=== PATIENT | female | born 1960 | race Caucasian/White ===

== ENCOUNTER 2024-08-19 16:10 | Emergency (ER) | payer OTHER, SELFPAY ==
[2024-08-19 16:41] LABS: % Basophils 0.9 % (0-2); % Eosinophils 1.1 % (0-6); % Immature Granulocytes 0.5 % (0-0.5); % Lymphocytes 15.3 % (20.5-51.1); % Monocytes 9.7 % (1.7-9.3); % Neutrophils 72.5 % (42.2-75.2); Absolute Basophils 0.1 10^3/uL (0-0.2); Absolute Eosinophils 0.1 10^3/uL (0-0.7); Absolute Immature Granulocytes 0.1 10^3/uL (0-0.05); Absolute Lymphocytes 1.6 10^3/uL (1.2-3.4); Absolute Neutrophils 7.7 10^3/uL (1.4-6.5); Hematocrit 40.1 % (37.0-47.0); Hemoglobin 13.2 g/dL (12.0-16.0); Mean Corp Hgb Conc. 32.9 g/dL (33.0-37.0); Mean Corpuscular Hgb 30.8 pg (27.0-31.0); Mean Corpuscular Volume 93.5 fL (81.0-99.0); Mean Platelet Volume 10.4 fL (7.4-10.4); Nucleated Red Blood Cells % 0 %; Platelet Count 276 10^3/uL (130-400); Red Blood Cell Count 4.29 10^6/uL (4.20-5.40); Red Cell Dist. Width 14.7 % (11.5-14.5); White Blood Cell Count 10.6 10^3/uL (4.8-10.8)
[2024-08-19 16:47] LABS: ALT (SGPT) 23 U/L (0-35); AST (SGOT) 21 U/L (14-36); Albumin 4.3 g/dl (3.5-5.0); Alkaline Phosphatase 101 U/L (38-126); Blood Urea Nitrogen 27 mg/dl (7-17); Carbon Dioxide 25 mmol/L (22-30); Chloride 102 mmol/L (98-107); Glucose 98 mg/dl (70-99); Lipase 95 U/L (23-300); Potassium 4.9 mmol/L (3.5-5.1); Sodium 138 mmol/L (135-145); Total Bilirubin 0.5 mg/dl (0.2-1.3); Total Protein 6.9 g/dl (6.3-8.2); eGFR 45.63
[2024-08-19 18:13] VITALS: BP 132/53
--- NOTE | 2024-08-19 18:33 | ED.GENMED ---
History of Present Illness
General
Chief Complaint: Abdominal Pain
Source: patient
Exam Limitations: none
Time Seen by Provider: 08/19/24 18:08
History of Present Illness
History of Present Illness:
This is a 63 year old female that comes in with c/o right lower abd pain. States that she started yesterday with pain. Then last night through the night it got worse and she was unable to sleep. States that she could hardly move in bed to get up or
turn. State that she was also no Ozempic. States that her insurance would not cover this so she found someone that did compound medication. States that she was on this for about 6 weeks and she started with diarrhea 2-3 days after starting. State
that she would also have bright red blood in her stool occasionally. States that she stopped this compound medication 2 weeks ago but over the past week she is till having bright red blood in her stool. States that she is occasionally SOB with her
asthma. Denies any fever, chills, chest pain, nausea, vomiting, diarrhea, headache, dizziness, urinary burning.
Past History
Past History
ED Past Medical History: Asthma, HTN, Hypercholesterolemia, Psychiatric (Anxiety, Depression) and Other (Concussion, Renal calculus, )
ED Past Surgical History: Cholecystectomy, Gynecological (Total abd hyster with mass removed from abd. ), Orthopedic (Bilateral knee replacements X 2), Tonsilectomy and Other (Bariatric [id number]-CTI-NAQA procedure)
Social History
Tobacco: Former smoker
Alcohol: Occasional
Personal: Single
Living: alone
Review of Systems
Review of Systems
All Other Systems: ROS reviewed and negative except as documented in HPI and ROS
Constitutional: Reports no symptoms; Denies fever or chills
EENT: Reports no symptoms
Respiratory: Reports trouble breathing; Denies cough
Cardiac: Reports no symptoms; Denies chest pain
ABD/GI: Reports abdominal pain and bloody stools (Occasional); Denies nausea, vomiting or diarrhea
: Reports no symptoms; Denies dysuria, frequency or urgency
Musculoskeletal: Reports no symptoms
Skin: Reports no symptoms
Neurological: Reports no symptoms; Denies dizzy or headache
Psychiatric: Reports no symptoms
Phy Exam
General Physical Exam
General Presentation: mild distress (Patient refused pain medication at this time)
General age: appears stated age
General Skin: warm and dry
General Habitus: normal
General Mental: alert
General Hydration: dry mucous membranes
ENT Exam
ENT Exam: TM's normal, pharynx normal and neck supple
Eye Exam
Eye Exam: EOMI
Cardiovascular Exam
Cardiovascular Exam: regular rate/rhythm, no edema and normal peripheral pulses
Pulmonary Exam
Pulmonary Exam: lungs clear, no respiratory distress, no rales, chest non tender, no crackles, no rhonchi, no wheezing and no cough
Gastrointestinal Exam
Gastrointestinal Exam: normal bowel sounds, soft, no organomegaly, no pulsatile mass, non distended, tender (RLQ tenderness with palpation) and other (Obese, No stool in the rectal vault at this time. Hem negative. )
Musculoskeletal Exam
Musculoskeletal Exam: full ROM and no edema
Skin Exam
Skin Exam: normal color, warm/dry, no rash and no petechia
Psychiatric Exam
Psychiatric Exam: normal mood/affect
Course
Orders/Labs/Results
Orders:
Orders
08/19/24 16:28
Complete Blood Count/With Diff Urgent
Comprehensive Metabolic Panel Urgent
Lipase Urgent
08/19/24 18:32
CT Abd/pelvis W Iv Cont Urgent
Comment:
Reason For Exam: right sided abd pain
0.9% Sodium Chloride 1000 ml [Nss] 1,000 ml IV BOLUS
08/19/24 18:33
Add On- LAB Urgent
Tests Added?: HCG
08/19/24 20:01
Urinalysis Reflex To Culture Urgent
Date Specimen was Collected: 08/19/24
Time Specimen was Collected: 19:56
Urine Microscopic Reflex Cult Urgent
Abnormal Lab Results
08/19/24 08/19/24
16:28 20:01
MCHC 32.9 L g/dL
(33.0-37.0)
RDW 14.7 H %
(11.5-14.5)
Abs Immat Gran (auto) 0.1 H 10^3/uL
(0-0.05)
Absolute Neuts (auto) 7.7 H 10^3/uL
(1.4-6.5)
Absolute Monos (auto) 1.0 H 10^3/uL
(0.1-0.6)
Lymphocytes % 15.3 L %
(20.5-51.1)
Monocytes % 9.7 H %
(1.7-9.3)
BUN 27 H mg/dl
(7-17)
Creatinine 1.3 H mg/dL
(0.6-1.0)
Leukocyte Esterase Rfl Trace A
(Negative)
08/19/24 16:28
08/19/24 16:28
Dehydration. Lipase normal at 95, Urine negative for infection
Vital Signs
Initial and Last Documented VS:
Initial Vital Signs
Temp Pulse Resp Pulse Ox
98.7 F 102 20 97
08/19/24 16:12 08/19/24 16:12 08/19/24 16:12 08/19/24 16:12
Last Documented Vital Signs
Temp Pulse Resp BP Pulse Ox
98.7 F 90 19 165/76 98
08/19/24 16:12 08/19/24 20:00 08/19/24 20:00 08/19/24 20:00 08/19/24 20:00
MDM/Problems Addressed
Differential Diagnosis Includes:
appendicitis, Abd adhesions
MDM/Problems Addressed:
This is a 63 year old female that comes in with c/o right lower abd pain and some rectal bleeding.
Will check labs and get CT scan.
Back into see patient. Reviewed CT scan. Explained that she has a fatty liver and fat filled hernia but her appendix is normal and there is no bowel obstruction. Explained that she may have pulled a muscle. If her pain continued you will need to
see the family doctor. Patient may also had adhesions. Will discharge home.
Chronic conditions affecting care:
Obese
Acute Exacerbation and/or Progression of Chronic Illness:
NA
*Radiology
Radiology exam reviewed: radiology read reviewed (CT-The appendix appears normal. NO evidence for bowel obstruction. NO vidence of free intraperitoneal air. Hepatomegaly with diffuse fatty infiltration of the liver. Status post cholecystectomy with
no evidence for biliary ductal dilation. Laparoscopic gastric band is present and appears unchanged. ), all reviewed NAD by ED Provider (CT cont- Status post total abdominal hysterectomy with removal of pelvis mass since examination in 2020. NO
eivdence fo abnormal pelvic mass or ascites on today's exam. Fat containing hernia in the right paramedian abdomen. No CT findings to suggest strangulation or inflammation of the hernia sac. ) and other (CT cont- slightly enlarged lymph nodes within
the pelvis, mainly adjacent to the common femoral vessels, stable from examination of Nov 22, 2020. Stability is reassuring that these are benign lymph nodes. )
*Pulse Oximetry
Patient hypoxic: no
*EKG
Interpreted by ED Provider?: NA
Rate: EKG- N/A
*Warp Clamper Interpretation
Rate: normal
Heart Rate: 88
Rhythm: sinus
*Critical Care Note
Total Time (30-74mins, 75-104mins- exclusive of procedures): Not Applicable
ED Attending Note
-
Portions of this chart may have been created with voice recognition software.� Occasional wrong word or��sound alike� substitutions may have occurred due to the inherent limitations of voice recognition software.
Discharge Plan
Departure
Patient Disposition: Home (Routine Discharge)
Date of Disposition: 08/19/24
Time of Disposition: 20:58
Patient with high blood pressure during this ER visit?: Yes
Condition: Good
Covid-19: Not Applicable
Discharge Problem:
Abdominal pain
Instructions: Abdominal Pain, BLOOD PRESSURE
Prescriptions:
No Action
alprazolam 0.5 MG tablet
0.5 mg PO BIDPRN PRN (Reason: anxiety)
bupropion HCl 300 MG tablet extended release 24 hr
300 mg PO DAILY
fluticasone propion-salmeterol 250-50 mcg/dose Blister With Device
1 inh INHALATION R BID
pravastatin 40 mg Tablet
40 mg PO DAILY
Theragen Tablet
1 tab PO DAILY
metoprolol succinate 25 mg Tablet Extended Release 24 Hr
25 mg PO DAILY
irbesartan 150 mg Tablet
150 mg PO DAILY
albuterol sulfate 90 mcg/actuation Hfa Aerosol Inhaler
2 puff INHALATION R Q4HPRN PRN (Reason: sob)
cholecalciferol (vitamin D3) [Vitamin D3] 10 mcg (400 unit) Tablet
10 mcg PO DAILY
desvenlafaxine 100 mg Tablet Extended Release 24 Hr
100 mg PO DAILY
Activity Restrictions/Additional Instructions:
As discussed, your blood work show dehydration. Please increase your water intake to 8-8oz glasses daily. Your CT is negative for any acute process and your urine is negative for infection. You have a fatty liver and fat filled hernia. Please follow
up with the family doctor. You may use Tylenol or Ibuprofen for pain. IF YOU HAVE ANY OTHER CONCERNS PLEASE RETURN TO THE EMERGENCY ROOM.
Interventions
Interventions:
*Risk Screen - Suicide Last Done: 08/19/24 16:15
*General Assessment Last Done: 08/19/24 16:15
*Neglect/Abuse Screening Last Done: 08/19/24 16:15
ED- Fall Risk Assessment Last Done: 08/19/24 19:05
*ED COVID-19 Vaccine History Last Done: 08/19/24 16:16
DY-Satxbb-Knyivtgyro Assessment Last Done: 08/19/24 19:05
Discharge Date and Time
Print Language: WELSH
[2024-08-19 19:04] VITALS: BMI 51.4
[2024-08-19] MEDS: NSS 1000 IV (19:04)
[2024-08-19 20:00] VITALS: BP 165/76
[2024-08-19 20:13] LABS: Urine Albumin Trace (Neg - Trace); Urine Bilirubin Negative (Negative); Urine Character Clear (Clear); Urine Color Yellow; Urine Glucose Negative (Negative); Urine Ketone Negative (Negative); Urine Leukocyte Trace (Negative); Urine Nitrite Negative (Negative); Urine Occult Blood Negative (Negative); Urine Specific Gravity 1.015 (<1.030); Urine Urobilinogen Negative (Neg - 1+)
[2024-08-19 20:32] LABS: Urine Hyaline Cast >15 /LPF (0-2); Urine Squamous Cell >30 /LPF (Few)
[2024-08-19 20:33] LABS: Urine Bacteria Moderate (Negative); Urine Red Blood Cell 0-2 /HPF (0-2)
== END 2024-08-19 21:30 | disposition home or self-care (01) ==
LOC: EMR 16:10
PROVIDERS: Clinical Nurse Specialist Family Health; Emergency Medicine; EMERGENCY PHYSICIAN Emergency Medicine; FAMILY PHYSICIAN Internal Medicine
DX: R10.31 Right lower quadrant pain (principal); K92.1 Melena; R59.9 Enlarged lymph nodes, unspecified; R16.0 Hepatomegaly, not elsewhere classified; K76.0 Fatty (change of) liver, not elsewhere classified; E66.9 Obesity, unspecified; J45.909 Unspecified asthma, uncomplicated; I10 Essential (primary) hypertension; E78.00 Pure hypercholesterolemia, unspecified; F32.A Depression, unspecified; F41.9 Anxiety disorder, unspecified; Z96.653 Presence of artificial knee joint, bilateral; Z87.891 Personal history of nicotine dependence; Z87.442 Personal history of urinary calculi; Z87.820 Personal history of traumatic brain injury; Z90.49 Acquired absence of other specified parts of digestive tract; Z90.710 Acquired absence of both cervix and uterus; Z88.2 Allergy status to sulfonamides
CPT/HCPCS: 99284; 96360; 74177; 80053; 81003; 81015; 83690; 85025; 87086; Q9967

== ENCOUNTER 2024-09-02 20:07 | Inpatient (IN) | payer OTHER, SELFPAY ==
[2024-09-02 16:52] VITALS: BP 135/91
[2024-09-02 17:54] VITALS: BMI 49.8
--- NOTE | 2024-09-02 18:21 | ED.GENMED ---
History of Present Illness
General
Chief Complaint: Weakness
Time Seen by Provider: 09/02/24 17:58
History of Present Illness
History of Present Illness:
63-year-old female presents to the emergency department for evaluation of persistent diarrhea ongoing for the past month. She went to her primary care physician today where she was noted to be dizzy and weak and had an episode of hypotension
prompting ED evaluation. Blood pressure was reportedly 70 systolic in the primary care office today. She was seen in the emergency department 2 weeks ago for similar symptoms at which time a CT scan did not reveal any acute pathology. She was
noted to have a newly diagnosed right abdominal hernia however this was not felt to be contributory to her symptoms. Has had continued diarrhea on a daily basis, generally nonbloody. Denies any recent antibiotics in the past 3 months. No
associated fevers or night sweats.
Past History
Past History
ED Past Medical History: Asthma, HTN, Hypercholesterolemia, Psychiatric (Anxiety, Depression) and Other (Concussion, Renal calculus, )
ED Past Surgical History: Cholecystectomy, Gynecological (Total abd hyster with mass removed from abd. ), Orthopedic (Bilateral knee replacements X 2), Tonsilectomy and Other (Bariatric yziyrax-XSP-BDLH procedure)
Social History
Tobacco: Former smoker
Alcohol: Occasional
Personal: Single
Living: alone
Review of Systems
Review of Systems
Allergies reviewed?: Yes
All Other Systems: ROS reviewed and negative except as documented in HPI and ROS
Phy Exam
Physical Exam
Physical Exam:
GEN: Well appearing, NAD, WDWN
HEENT: Oral mucosa moist, no scleral icterus
Cardiac: Regular rate and rhythm, no murmurs
Lung: No respiratory distress, no tachypnea, lungs clear to auscultation bilaterally
Abdomen: Obesity limits exam, soft, tender to the right abdomen, right upper quadrant and right mid abdomen, no rigidity or peritoneal signs
MSK: No gross deformity or injuries
Skin: Good color, no pallor or jaundice, no rashes
Neuro: AO x3, moves all extremities freely
Psych: Calm, cooperative
Course
Orders/Labs/Results
Orders:
Orders
09/02/24 Dinner
Low Fat
At Your Request: Full Participation
09/02/24 18:04
TSH Reflex To Free T4 Routine
09/02/24 18:05
Complete Blood Count/With Diff Urgent
Comprehensive Metabolic Panel Urgent
Lipase Urgent
09/02/24 18:54
0.9% Sodium Chloride 1000 ml [Nss] 1,000 ml IV BOLUS
09/02/24 19:41
STOOL [C difficile Antigen & Toxins] Urgent
MARGIE Source: Feces/Stool
Specimen Description:
Stool Culture Urgent
MARGIE Source: Feces/Stool
Specimen Description:
Stool For WBC Urgent
MARGIE Source: Feces/Stool
Specimen Description:
09/02/24 19:42
Admit/Transfer Patient As Directed
Co-Sign Provider:
Level of Care: Inpatient admission
Assign to:: Medical/Surgical
Physician / Group: Silvino
Diagnosis: BHARATH, Diarrhea
Reason for Hospitalization: BHARATH, Diarrhea
Expected length of stay greater than two midnights?: Yes
ELOS- Estimated Length of Stay in days: 2
I certify the patient meets the requirements for IP care: Yes
PRN Pain Medication Management As Directed
May give lesser potent ordered pain med per pt: Yes
preference::
Protocol:: Medication orders for pain may be administered in a
manner that supports deferring to patient preference
when the pt is:
- Requesting an ordered lesser potent pain medication.
Least to most potent pain medications are defined
as: acetaminophen < NSAID < tramadol < opioids
(morphine, oxycodone, hydromorphone).
- Requesting a lesser dose of the same medication IF
ORDERED.
- Requesting a less intrusive route of administration
if both routes are prescribed by the provider (PO <
IV).
09/02/24 19:43
Code Status As Directed
Resuscitation Status: Full Code
09/02/24 21:04
0.9% Sodium Chloride 1000 ml [Nss] 1,000 ml IV 125 mls/hr
Acetaminophen [Tylenol] 650 mg PO Q4HPRN PRN
Albuterol Nebs [Ventolin Nebules] 2.5 mg INH R Q4HPRN PRN
Alprazolam [Xanax] 0.5 mg PO BIDPRN PRN
Ondansetron Injectable [Zofran] 4 mg IV Q6HPRN PRN
09/02/24 21:04
Activity As Directed
Activity Level: Ambulate
I/O [Intake/ Output] As Directed
Frequency: Per unit guidelines
Orthostatic Vital Signs As Directed
Orthostatic VS Frequency: BID
Pneumatic Compression Sleeves As Directed
Type: Knee high
Vital Signs As Directed
Frequency: Per unit guidelines
Oxygen Therapy [O2 Therapy] [RESP] Routine
Titrate/Wean O2 to maintain O2 sat greater than (%): 94
DX Deep Vein Thrombosis Video Routine
09/02/24 21:15
Fluticasone/Salmeterol 115/21 [Advair Hfa 115/21 Mcg Inhaler] 2 puff INH R BID
09/02/24 23:30
Urinalysis Reflex To Culture Urgent
Date Specimen was Collected: 09/02/24
Time Specimen was Collected: 18:19
09/03/24 00:00
Heparin 5,000 units SC Q8
09/03/24 06:00
Basic Metabolic Panel IN AM
Complete Blood Count/No Diff IN AM
09/03/24 08:00
Bupropion(24Hr)Extended Releas [WELLBUTRIN XL (24 hour extended release)] 300 mg PO DAILY
Desvenlafaxine Succinate [Pristiq] 200 mg PO DAILY
Metoprolol Xl [Toprol Xl] 25 mg PO DAILY
Pravastatin Sodium [Pravachol] 40 mg PO DAILY
Abnormal Lab Results
09/02/24
18:05
WBC 11.5 H 10^3/uL
(4.8-10.8)
RDW 14.6 H %
(11.5-14.5)
Abs Immat Gran (auto) 0.1 H 10^3/uL
(0-0.05)
Absolute Neuts (auto) 7.7 H 10^3/uL
(1.4-6.5)
Absolute Monos (auto) 1.7 H 10^3/uL
(0.1-0.6)
Immature Gran % 1.0 H %
(0-0.5)
Lymphocytes % 16.7 L %
(20.5-51.1)
Monocytes % 14.7 H %
(1.7-9.3)
Carbon Dioxide 20 L mmol/L
(22-30)
BUN 34 H mg/dl
(7-17)
Creatinine 2.4 H mg/dL
(0.6-1.0)
Glucose 107 H mg/dl
(70-99)
09/02/24 18:05
09/02/24 18:05
Vital Signs
Initial and Last Documented VS:
Initial Vital Signs
Temp Pulse Resp BP Pulse Ox
98.8 F 91 18 135/91 98
09/02/24 16:52 09/02/24 16:52 09/02/24 16:52 09/02/24 16:52 09/02/24 16:52
Last Documented Vital Signs
Temp Pulse Resp BP Pulse Ox
97.7 F 69 18 130/80 94
09/02/24 22:54 09/02/24 22:54 09/02/24 22:54 09/02/24 22:54 09/02/24 22:54
MDM/Problems Addressed
MDM/Problems Addressed:
Unclear source of the patient's diarrhea, not high risk for C. difficile but certainly could benefit from stool culture testing. She has a significant BHARATH which is causing her intermittent hypotension and weakness thus we will admit for IV fluids
and further management
*Critical Care Note
Total Time (30-74mins, 75-104mins- exclusive of procedures): Not Applicable
ED Attending Note
-
Portions of this chart may have been created with voice recognition software.� Occasional wrong word or��sound alike� substitutions may have occurred due to the inherent limitations of voice recognition software.
Discharge Plan
Departure
Patient Disposition: Admit
Date of Disposition: 09/02/24
Time of Disposition: 19:02
Presentation/result/management discussed w/ accepting MD/DO: Hospitalist
Discharge Problem:
Diarrhea, Weakness, Acute kidney injury
Interventions
Interventions:
*Risk Screen - Suicide Last Done: 09/02/24 16:52
*General Assessment Last Done: 09/02/24 16:52
*Neglect/Abuse Screening Last Done: 09/02/24 16:52
*ED COVID-19 Vaccine History Last Done: 09/02/24 16:52
*Nursing Disposition Last Done: 09/02/24 21:04
ED- Cardiac Assessment Last Done: 09/02/24 17:54
ED- Neurological Assessment Last Done: 09/02/24 17:54
ED- Pulmonary Assessment Last Done: 09/02/24 17:54
Discharge Date and Time
Discharge Date/Time: 09/02/24 21:06
[2024-09-02 18:24] LABS: % Basophils 0.7 % (0-2); % Eosinophils 0.3 % (0-6); % Lymphocytes 16.7 % (20.5-51.1); % Monocytes 14.7 % (1.7-9.3); % Neutrophils 66.6 % (42.2-75.2); Absolute Basophils 0.1 10^3/uL (0-0.2); Absolute Immature Granulocytes 0.1 10^3/uL (0-0.05); Absolute Lymphocytes 1.9 10^3/uL (1.2-3.4); Absolute Monocytes 1.7 10^3/uL (0.1-0.6); Absolute Neutrophils 7.7 10^3/uL (1.4-6.5); Hematocrit 41.1 % (37.0-47.0); Hemoglobin 13.9 g/dL (12.0-16.0); Mean Corp Hgb Conc. 33.8 g/dL (33.0-37.0); Mean Corpuscular Hgb 30.3 pg (27.0-31.0); Mean Corpuscular Volume 89.7 fL (81.0-99.0); Mean Platelet Volume 9.5 fL (7.4-10.4); Nucleated Red Blood Cells % 0 %; Platelet Count 264 10^3/uL (130-400); Red Blood Cell Count 4.58 10^6/uL (4.20-5.40); Red Cell Dist. Width 14.6 % (11.5-14.5); White Blood Cell Count 11.5 10^3/uL (4.8-10.8)
[2024-09-02 18:29] LABS: ALT (SGPT) 27 U/L (0-35); AST (SGOT) 25 U/L (14-36); Albumin 4.4 g/dl (3.5-5.0); Alkaline Phosphatase 98 U/L (38-126); Blood Urea Nitrogen 34 mg/dl (7-17); Calcium 10.1 mg/dl (8.4-10.2); Carbon Dioxide 20 mmol/L (22-30); Estimated Creatinine Clearance 32 ml/min; Glucose 107 mg/dl (70-99); Lipase 78 U/L (23-300); Total Bilirubin 0.3 mg/dl (0.2-1.3); Total Protein 7.3 g/dl (6.3-8.2); eGFR 21.87
[2024-09-02 18:38] VITALS: BP 134/64
[2024-09-02 18:52] LABS: Chloride 98 mmol/L (98-107); Potassium 4.7 mmol/L (3.5-5.1); Sodium 136 mmol/L (135-145)
[2024-09-02 19:00] VITALS: BP 132/71
--- NOTE | 2024-09-02 19:45 | HPS.HSE ---
Family Physician
-
Family Physician: Karis Craft MD
Chief Complaint
-
Diarrhea, Weakness
History of Present Illness
Patient is a 63y F with PMH significant for anxiety / depression, hypertension and morbid obesity who presents to ED complaining of weakness and diarrhea. Patient states that she developed loose stools about 2 months ago after beginning a new,
compounded form of semaglutide for weight loss. She stopped this medication about 4 weeks ago; however, her symptoms have only progressed since that time. Patient states that she has been having loose and occasionally watery stools for the past
3-4 weeks. These occur between 3 - 7 times per day. She has limited her dairy / fatty food intake with no appreciable change in her symptoms.
She was seen here in the ED on 08/19 for complaints of abdominal discomfort and loose stools. Evaluation at that time was largely unremarkable.
Today, patient had an episode of incontinence of watery stool while in the shower.
She was seen by her PCP today and her BP was reportedly very low (70-80 systolic at that office). Patient was advised to present to the ED for further evaluation.
Patient states that she feels very weak and 'shaky'. She also admits to development of urinary urgency and dysuria - only over the past few days.
She also states that she has noted some streaks of blood on the toilet paper after BM. No grossly bloody stools.
She has not been on any recent abx. She denies any recent travel or known sick contacts. No recent med changes other than previously mentioned semaglutide.
Patient took a single dose of Imodium today around 1 PM.
She has passed no stool or urine since her arrival here in the ED.
Medical History
Past Medical History
Past Medical History: Reports Other
Additional Past Medical History:
Hypertension
Anxiety / Depression
Morbid Obesity
Asthma
CKD - ? Stage
Ovarian Cancer
Past Surgical History: Reports Other
Additional Past Surgical History:
Bilateral TKA (x 2 each)
Lap Band
Cholecystectomy
PAUL / BSO / Pelvic Mass Resection
Social History
Tobacco: Former Smoker
Alcohol: Occasional
Drug: None
Living: With Family
Family History
Family History: Not pertinent
Allergies / Home Medications
Allergies reflects when Allergies were last updated in [facility].
Home Medications with original date entered in [facility]
Allergy/Medication List:
Allergies
Allergy/AdvReac Type Severity Reaction Status Date / Time
Sulfa (Sulfonamide Allergy total body Verified 08/19/24 16:15
Antibiotics) rash,
disorientated
Home Medications
alprazolam 0.5 mg tablet 0.5 mg PO BIDPRN PRN anxiety 12/25/18
bupropion HCl 300 mg 24 hr tablet, extended release 300 mg PO DAILY 12/25/18
albuterol sulfate 90 mcg/actuation aerosol inhaler 2 puff inhalation R Q4HPRN PRN sob 08/19/24
desvenlafaxine 100 mg tablet,extended release 24 hr 200 mg PO DAILY 08/19/24
fluticasone 250 mcg-salmeterol 50 mcg/dose blistr powdr for inhalation 1 inh inhalation R BID 08/19/24
irbesartan 150 mg tablet 150 mg PO DAILY 08/19/24
metoprolol succinate 25 mg tablet,extended release 24 hr 25 mg PO DAILY 08/19/24
pravastatin 40 mg tablet 40 mg PO DAILY 08/19/24
therapeutic multivitamin 1 tab PO DAILY 08/19/24
cholecalciferol (vitamin D3) 50 mcg (2,000 unit) tablet (Vitamin D3) 50 mcg PO DAILY 09/02/24
Review of Systems
-
History Source: Patient
Constitutional: Reports Fatigue; Denies Fever or Chills
Respiratory: Denies Cough or Trouble Breathing
Cardiac: Denies Chest Pain or Palpitations
Abdomen/GI: Reports Abdominal Pain and Diarrhea; Denies Nausea, Vomiting, Constipated or Bloody Stools
: Denies Dysuria, Frequency or Flank Pain
Musculoskeletal: Denies Edema
Neurological: Denies Dizzy or Headache
Psych: Denies Depression or Anxiety
Physical Exam
Vital Signs
Vital Signs
Temp Pulse Resp BP Pulse Ox
98.8 F 75 18 134/64 98
09/02/24 16:52 09/02/24 18:45 09/02/24 18:45 09/02/24 18:38 09/02/24 16:52
Physical Exam
General: Other (63y F in no acute distress.)
HEENT: Moist mucous membranes and PERRLA
Respiratory: Clear; No Wheezes, Rales or Rhonchi
Cardiac: S1/S2 and Regular Rhythm; No Murmur
GI: Other (Obese, tenderness over lower ribs on the right / RUQ. No rebound / guarding. Pos BS.)
Musculoskeletal: No Clubbing, No Cyanosis and No Edema
Neuro: AO x 3
Laboratory Results
-
09/02/24 18:05
09/02/24 18:05
Laboratory Results
Total Bilirubin 0.3 mg/dl (0.2-1.3) 09/02/24 18:05
AST 25 U/L (14-36) 09/02/24 18:05
ALT 27 U/L (0-35) 09/02/24 18:05
Alkaline Phosphatase 98 U/L (38-126) 09/02/24 18:05
Lipase 78 U/L (23-300) 09/02/24 18:05
Impression/Plan
-
A/P: Patient is a 63y F with PMH significant for HHTN, CKD and anxiety / depression who presents to ED complaining of diarhea x several weeks and generalized weakness.
BHARATH on CKD (III?)
- Admit for further evaluation and treatment.
- SCr today is 2.4 compared to baseline somewhere between 1.3 and 1.9 based on limited prior lab data.
- Likely due to volume depletion secondary to GI losses and poor appetite.
- IVF support.
- Address GI losses as noted below.
- Follow labs / lytes for improvement.
Diarrhea
- Loose / watery stools between 3 / 7 times per day over the past month.
- Seemed to be triggered or at least exacerbated by compounded semaglutide.
- Had been on branded Ozempic x months prior with no such issues.
- Symptoms have only gotten worse since stopping semaglutide about 4 weeks ago.
- Check stool studies.
- Observe off of abx pending these results.
- GI evaluation for additional recommendations.
- CT scan done here on 08/19 with no clear etiology for pain.
- Quantify stools. Follow for clinical improvement.
Benign Hypertension
- No low BP values here in the ED.
- Continue metoprolol with holding parameters.
- Hold ARB acutely given BHARATH.
Anxiety / Depression
- Some evident anxiety today based on recent health issues, bowel incontinence, etc.
- Continue current med regimen without changes.
Morbid Obesity due to excess calories
- Affects all aspects of care.
- Would remain off of semaglutide given likely relationship to current GI issues.
- Encourage healthy diet / increased activity / etc for goal of weight reduction.
DVT Prophylaxis: Subcut Heparin
Code Status: Full
[2024-09-02 20:00] VITALS: BP 136/53
[2024-09-02] MEDS: NSS 1000 IV ×2 (20:11→21:17)
--- NOTE | 2024-09-02 21:02 | PTCARENOTE ---
Pt received frpm ED to rm 420. Pt oriented to room and call duran.
[2024-09-02 21:21] VITALS: BP 114/79; BP 127/89; BP 138/83; PULSE 73; PULSE 84; PULSE 86
[2024-09-02 21:23] VITALS: BMI 49.8
[2024-09-02] MEDS: ADVAIR HFA 115/21 MCG INHALER INH (21:46)
[2024-09-02 22:54] VITALS: BP 130/80
[2024-09-02] MEDS: HEPARIN 5000 UNITS SC (23:14)
[2024-09-03 00:19] LABS: TSH Reflex To Free T4 1.29 uIU/ml (0.47-4.68)
[2024-09-03 01:56] LABS: Urine Albumin 1+ (Neg - Trace); Urine Bilirubin Negative (Negative); Urine Character Very Cloudy (Clear); Urine Color Yellow; Urine Glucose Negative (Negative); Urine Ketone Negative (Negative); Urine Leukocyte 2+ (Negative); Urine Nitrite Negative (Negative); Urine Occult Blood 1+ (Negative); Urine Specific Gravity 1.015 (<1.030); Urine Urobilinogen Negative (Neg - 1+)
[2024-09-03 02:07] LABS: Urine Red Blood Cell 16-20 /HPF (0-2); Urine Squamous Cell 16-20 /LPF (Few); Urine White Cell >100 /HPF (0-5)
[2024-09-03 02:08] LABS: Urine Bacteria Many (Negative)
[2024-09-03] MEDS: NSS 1000 IV ×3 (05:38→23:07)
[2024-09-03 07:30] VITALS: BP 155/82
[2024-09-03 07:40] VITALS: BP 155/82
[2024-09-03] MEDS: ADVAIR HFA 115/21 MCG INHALER 2 PUFF INH ×2 (08:08→19:54)
[2024-09-03 08:09] LABS: Hematocrit 36.8 % (37.0-47.0); Hemoglobin 12.2 g/dL (12.0-16.0); Mean Corp Hgb Conc. 33.2 g/dL (33.0-37.0); Mean Corpuscular Hgb 31.8 pg (27.0-31.0); Mean Corpuscular Volume 95.8 fL (81.0-99.0); Platelet Count 225 10^3/uL (130-400); Red Blood Cell Count 3.84 10^6/uL (4.20-5.40); Red Cell Dist. Width 14.6 % (11.5-14.5); White Blood Cell Count 8.8 10^3/uL (4.8-10.8)
[2024-09-03 08:39] LABS: Blood Urea Nitrogen 38 mg/dl (7-17); Calcium 8.8 mg/dl (8.4-10.2); Carbon Dioxide 22 mmol/L (22-30); Chloride 102 mmol/L (98-107); Estimated Creatinine Clearance 33 ml/min; Glucose 92 mg/dl (70-99); Potassium 4.6 mmol/L (3.5-5.1); Sodium 136 mmol/L (135-145); eGFR 23.01
[2024-09-03] MEDS: WELLBUTRIN XL (24 hour extended release) 300 MG PO (08:57)
[2024-09-03] MEDS: HEPARIN 5000 UNITS SC ×3 (08:57→23:09)
[2024-09-03] MEDS: PRISTIQ 200 MG PO (08:57)
[2024-09-03] MEDS: TOPROL XL 25 MG PO (08:57)
[2024-09-03] MEDS: PRAVACHOL 40 MG PO (08:57)
--- NOTE | 2024-09-03 10:12 | CON.GI ---
Addendum entered and electronically signed by Cass Lam DO 09/03/24 13:41:
Patient seen and examined independently of JENNA. I agree with her note with my additions below
Ivanna is a 63-year-old obese female with history of asthma, prior lap band has been followed outpatient by nutritional team for weight loss and has been on Ozempic comes in with weakness diarrhea acute kidney injury. GI was consulted because of
diarrhea. She does not have an outpatient GI doctor and was scheduled to see us in October.
She states in her past she would have occasional loose stools with anxiety but otherwise would have 1-2 formed stools daily. She started Ozempic about 8 weeks ago and would intermittently get some loose stools but noticed it was more frequent when
she switched to the compounded formulation. She did this because of cost. She has been off all Ozempic even the compounded formula for the last 4 weeks. Her diarrhea unfortunately progressed. Currently for the past 4 weeks has had roughly 4 max
8 loose stools with urgency and even incontinence at times. She does have difficulty getting to the bathroom quickly but says it can come on urgently. She denies any blood in the stool. She is some mild abdominal ache and noise but no significant
pain. Although she was here on August 18 with right lower quadrant pain after going to urgent care where an appendicitis was the concerning diagnosis.
CT 08/19/2024 with IV only contrast without oral contrast was done. Gastric lap band was present and stable. History of cholecystectomy. No ductal dilatation. Fatty liver with hepatomegaly. Normal spleen. Adrenal glands were slightly enlarged.
Normal pancreas. Slightly enlarged lymph nodes that are stable from 2020, status post hysterectomy and bilateral oophorectomies normal appendix. Fat-containing hernia in the right paramedian abdomen lateral to the umbilicus which is new
# Urgent loose stools -infectious versus medication versus celiac versus microscopic colitis versus worsening bile salt diarrhea
-- She has been off the Ozempic for weeks now
-- Stool studies are waiting to be collected. She did not make it to the commode.
-- Celiac panel pending
-- Last colonoscopy was over 10 years ago. If the workup is all negative we will eventually need a colonoscopy
# Abdominal tenderness -patient's right upper quadrant was very tender on exam
--Will repeat CT scan with oral contrast only since she has acute kidney injury due to the dehydration. Patient's liver enzymes are normal. Normal TSH
Original Note:
Consultation
-
Date/Time Consultation Requested: 09/02/24 2215
Date/Time Consultation Performed: 09/02/24 1000
Requesting Provider: Tom Dubois DO
Performing Provider: Bhargavi WEST, Cass Lam DO
Reason for Consultation: diarrhea
Medical History
Chief Complaint / HPI
Chief Complaint: diarrhea
History of Present Illness:
Pt is a 63yo presents with hx asthma, obesity with prior lap band and obesity OP follow with nutritional team (initial loss with lap band now gain with recent Ozempic trial), HTN, CKD, colon polyps, anxiety/depression(recently worse), pelvic
mass with neg path per patient, thyroid nodules with resection with onset of weakness and diarrhea. In review pt states diarrrhea started 2 months ago after starting a compounded form of semaglutide for weight. She stopped semaglutide 4 weeks ago
with continued symptoms. She states she initially took branded medication with slight change in bowel but then worsening symptoms with compounded med. She also admits to change in dosing with increase of Desvenlafaxine. She is also noted with
BHARATH with creat 2.4 on admission up from 1.3 on 08/19. 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 IBS symptoms for years and likely some lactose
intolerance. She admits at this time stools are loose and watery with large volume and some soft stools but no constipation or hard stools. Less nighttime stools. Stools are worse after eating. She also admits to some lower abdominal pain
prior to BM and improved after BM. She also has some upper abdominal pain around her lap band site. She will see occasional blood on paper she relate to hemorrhoids and about to hx colonoscopy about 10 years ago with polyp and overdue for repeat.
She is scheduled for October for office eval with Dr. Hernandez to review for colonoscopy.
She otherwise denies dysphagia, rare GERD, constipation or black stools. NSAID use 1 time per month. distal hx EGD in past with lap band.CT completed 08/19 with no obstruction, normal appendix, fatty liver, lap band present and unchanged, s/p
hysterectomy, fat containing hernia, enlarged nodes in pelvis stable since 2020.
Past Medical History
Past Medical History: Asthma, Cancer, HTN, Renal Failure (CKD), Psychiatric (anxiety/depression) and Other (obesity, ? IBS, lactose intolerance , colon polyps)
Past Surgical History: Bowel Resection (BSO), Gynecological (PAUL/pelvic mass resection neg path per patient), Orthopedic (b/l TKR) and Other (lap band, thyroid nodules with resection)
Social History
Tobacco: Former Smoker
Alcohol: Occasional
Drug: None
Living: With Family (family on property )
Family History
Family History: Other (no family hx colon CA or polyps)
Allergies / Home Medications
Allergy/AdvReac Type Severity Reaction Status Date / Time
Sulfa (Sulfonamide Allergy total body Verified 08/19/24 16:15
Antibiotics) rash,
disorientated
�Medication �Instructions �Recorded
alprazolam 0.5 mg tablet 0.5 mg PO BIDPRN PRN anxiety 12/25/18
bupropion HCl 300 mg 24 hr tablet, 300 mg PO DAILY 12/25/18
extended release
albuterol sulfate 90 mcg/actuation 2 puff inhalation R Q4HPRN PRN sob 08/19/24
aerosol inhaler
desvenlafaxine 100 mg 200 mg PO DAILY 08/19/24
tablet,extended release 24 hr
fluticasone 250 mcg-salmeterol 50 1 inh inhalation R BID 08/19/24
mcg/dose blistr powdr for
inhalation
irbesartan 150 mg tablet 150 mg PO DAILY 08/19/24
metoprolol succinate 25 mg 25 mg PO DAILY 08/19/24
tablet,extended release 24 hr
pravastatin 40 mg tablet 40 mg PO DAILY 08/19/24
therapeutic multivitamin 1 tab PO DAILY 08/19/24
cholecalciferol (vitamin D3) 50 100 mcg PO DAILY 09/02/24
mcg (2,000 unit) tablet (Vitamin
D3)
Review of Systems
-
History Source: Patient
Constitutional: Reports Weight Gain ( loss in past with lap band then gain. She has had some loss with initial ozempic then no loss with compounded med )
EENT: Reports No Symptoms
Respiratory: Reports Trouble Breathing (at times)
Cardiac: Reports No Symptoms
Abdomen/GI: Reports Abdominal Pain, Diarrhea, Bloody Stools (occasional red blood with wiping) and Other
: Reports Dysuria
Musculoskeletal: Reports Joint Pain
Skin: Reports No Symptoms
Neurological: Reports Weakness
Endocrine: Reports No Symptoms
Hematologic/Lymphatic: Reports No Symptoms
Vital Signs
Temp Pulse Resp BP Pulse Ox
97.6 F 76 18 155/82 95
09/03/24 07:40 09/03/24 08:37 09/03/24 08:37 09/03/24 07:40 09/03/24 08:37
Physical Exam
Results
WBC 8.8 10^3/uL (4.8-10.8) 09/03/24 07:03
Hgb 12.2 g/dL (12.0-16.0) 09/03/24 07:03
Hct 36.8 % (37.0-47.0) L 09/03/24 07:03
MCV 95.8 fL (81.0-99.0) 09/03/24 07:03
Plt Count 225 10^3/uL (130-400) 09/03/24 07:03
Absolute Neuts (auto) 7.7 10^3/uL (1.4-6.5) H 09/02/24 18:05
Sodium 136 mmol/L (135-145) 09/03/24 07:03
Potassium 4.6 mmol/L (3.5-5.1) 09/03/24 07:03
Chloride 102 mmol/L (98-107) 09/03/24 07:03
Carbon Dioxide 22 mmol/L (22-30) 09/03/24 07:03
BUN 38 mg/dl (7-17) H 09/03/24 07:03
Creatinine 2.3 mg/dL (0.6-1.0) H 09/03/24 07:03
Calcium 8.8 mg/dl (8.4-10.2) 09/03/24 07:03
Total Bilirubin 0.3 mg/dl (0.2-1.3) 09/02/24 18:05
AST 25 U/L (14-36) 09/02/24 18:05
ALT 27 U/L (0-35) 09/02/24 18:05
Alkaline Phosphatase 98 U/L (38-126) 09/02/24 18:05
Lipase 78 U/L (23-300) 09/02/24 18:05
Diagnostic Image Results:
08/19/24 CT Abd/pelvis W Iv Cont
IMPRESSION: The appendix appears normal.
No evidence for bowel obstruction. No evidence of free intraperitoneal air.
Hepatomegaly with diffuse fatty infiltration of the liver.
Status post cholecystectomy with no evidence for biliary ductal dilation.
Laparoscopic gastric band is present and appears unchanged.
Status post total abdominal hysterectomy and removal of pelvic mass since examination in 2020. No evidence for abnormal pelvic mass or ascites on today's exam.
Fat-containing hernia in the right paramedian abdomen. No CT findings to suggest strangulation or inflammation of the hernia sac.
Slightly enlarged lymph nodes within the pelvis, mainly adjacent to the common femoral vessels, stable from examination of November 22, 2020. Stability is reassuring that these are benign lymph nodes.
Prior GI Procedures:
EGD: years ago with lap band
Colonoscopy: 10 years ago with colon polyps
Assessment / Plan
-
Pt is a 63yo presents with hx asthma, obesity with prior lap band and obesity OP follow with nutritional team (initial loss with lap band now gain with recent Ozempic trial), ? baseline IBS-D, lactose intolerance, HTN, CKD, colon polyps,
anxiety/depression(recently worse), pelvic mass with neg path per patient, thyroid nodules with resection with onset of weakness and diarrhea. change noted after use of semaglutide initially mild with branded dosing then increased with compounded
meds. . She also admits to change in dosing with increase of Desvenlafaxine with increased stress and noted with BHARATH with creat 2.4 on admission up from 1.3 on 08/19 on admission. . She also has some upper abdominal pain around her lap band
site. She will see occasional blood on paper she relate to hemorrhoids. Hx colonoscopy about 10 years ago with polyp and overdue for repeat.
-diarrhea x4 weeks
-possible UTI
-abdominal pain
-acute on chronic CKD on admission
-increased stress anxiety
other med problems:
-obesity
-HTN
-lactose intolerance
-? underlying IBS-D
-hx lap band for wt loss
-colon polyps
-thryoid nodule
-hx benign pelvic mass with resection
-TKR
-hx eric
-fatty liver per imaging
PLAN:
etiology of diarrhea related to medication changes (specifically Ozempic with BHARATH and diarrhea), infectious etiology, microscopic colitis, vs IBS-D with stress vs other
cont to correct BHARATH
in review of meds Desvenlafaxine appear with more constipation issues, Ozempic can cause BHARATH, gi symptoms with GB disease( pt s/p eric) but also abdominal pain, pancreatitis (lipase normal on admission), constipation, diarrhea, nausea and vomiting
no signs of bowel obstruction with hx mutliple surgeries, lap band etc
check stool studies
check celiac panel
work up for UTI per medical team
lap band appears intact on recent CT
TSH normal
consider trial of Questran with some post prandial diarrhea
OP eval for fatty liver
for psych eval with anxiety
eventual colonoscopy will review timing with Dr. Lam, She is scheduled for October for office eval with Dr. Hernandez to review for colonoscopy.
-
-
Thank you for consultation and allowing me to participate in the patient's care. Please call the health safety and environment manager GI physician during the after hours with any questions or concerns.
--- NOTE | 2024-09-03 10:50 | W.PN.HOSP.TC ---
Today's Communication/Plan
-
Stool studies
GI consult
Psychiatry consult
Ceftriaxone
Await urine culture
Assessment / Plan
Assessment / Plan
Gen-AAOx3, NAD, morbid obesity
HEENT-NC, AT, anicteric, clear oral mm
Neck-supple
CV-reg, no M, +S1/S2
Lungs-clear B/L
Abd-soft, NT, ND
Ext-no edema
Musculoskeletal-no cyanosis, clubbing
Skin-warm and dry, bilateral knee scars
Neuro-grossly non-focal
Psych-calm, cooperative
BHARATH on CKD 3A -BHARATH due to volume depletion from GI losses, diarrhea. Continue IV fluids, monitor labs.
Subacute diarrhea -4 weeks of loose stools on a daily basis. Worse during the day and after she eats. Less of a problem at nighttime. Diarrhea started after starting compounded semaglutide. Prior to that, was on prescribed standard semaglutide
without significant loose stools. She switched to compounded semaglutide due to cost issues with standard semaglutide.
Last colonoscopy was at least 10 years ago.
Check stool studies. Consult GI. Differential diagnosis is broad, includes small intestinal bacterial overgrowth versus microscopic colitis versus other etiology. Did have some blood when she wiped but she believes she also has hemorrhoids. Does
have a history of colon polyps.
Possible UTI -she does have symptoms, pyuria noted on urinalysis. Await urine culture. Start empiric treatment with ceftriaxone.
Anxiety disorder/depression -consult psychiatry, patient agreeable. Very tearful in the room.
Essential hypertension -stable.
Hyperlipidemia -on pravastatin.
Morbid obesity due to excess calories
Full code
Anticipated Discharge: > 48 hours
Subjective/Interval History
-
Date of Service: September 03, 2024
Patient seen and examined. Feeling anxious, tearful. Still with diarrhea. Denies abdominal pain currently.
Objective Data
-
Labs:
Laboratory Results
09/03/24
07:03
WBC 8.8
Hgb 12.2
Hct 36.8 L
Plt Count 225
Sodium 136
Potassium 4.6
Chloride 102
Carbon Dioxide 22
BUN 38 H
Creatinine 2.3 H
Glucose 92
Calcium 8.8
Vital Signs:
Vital Signs
Temp Pulse Resp BP Pulse Ox
97.6 F 76 18 155/82 95
09/03/24 07:40 09/03/24 08:37 09/03/24 08:37 09/03/24 07:40 09/03/24 08:37
I&O
09/02/24 09/03/24 09/04/24
06:59 06:59 06:59
Intake Total 1250 / 1250
Output Total 250 / 250
Balance 1000 / 1000
Review of Systems
-
History Source: Patient
All other systems: Reviewed and negative
[2024-09-03] MEDS: STERILE WATER FOR INJECTION 10 ML IV (11:11)
[2024-09-03] MEDS: XANAX 0.5 MG PO (11:12)
[2024-09-03] MEDS: ROCEPHIN 1000 MG IV (11:12)
[2024-09-03] MEDS: OMNIPAQUE 50 ML PO (14:51)
[2024-09-03 16:00] VITALS: BP 139/97
--- NOTE | 2024-09-03 16:26 | CM ---
Patient seen bedside, initial assessment completed. Patient resides independently in a studio apartment [facility] property. Patient reports rollator and cane at home, [facility] in past after knee surgery, [facility] in past. Patient confirms PCP
Karis Craft, pharmacy [facility] Manuel Aggarwal, confirms prescription coverage. GI consult, Psych consult. CM received consult for Advance Directive, provided to patient. CM will continue to follow for all discharge planning needs.
Plan; home no needs likely.
--- NOTE | 2024-09-03 19:13 | CON.MD ---
Consultation - Medical
-
63 yr old F w/ PMH of CKD3A, HLD, HTN presenting with 4 weeks of diarrhea which started shortly after she started compounded semaglutide (from online 'clinic'). Admitted due to significant dehydration and ongoing diarrhea, getting colonoscopy on
Friday likely while still inpatient, however thus far nothing found to be cause of diarrhea. Psychiatry was consulted due to significant anxiety.
Pt seen & evaluated at bedside, sitting up in chair by bed. Presents as quite anxious - affect is anxious, speech logorrheic and nervous. She does report a hx of depression anxiety prior to this. Depressions described as episodic in nature with low
mood, anhedonia, amotivation, isolation, negative ruminations (denies hx of SI/SA). Anxiety with racing thoughts, anxious distress, panic episodes - also w/ hx of OCD dx and presents consistently with this today (notable anxiety about saying the
wrong thing or being misunderstood, anxiety about saying something the wrong way or of forgetting a crucial detail). Of note, cites [place] war & politics as stressor currently - has been trying to avoid the news but describes compulsive need to
watch videos of the war as otherwise she feels that she is pretending that 'everything is fine'. She is current taking Wellbutrin 300mg & Pristiq 100mg, which she has been taking for long time - says that dose was increased in june and this did
seem to help, however then started getting diarrhea and feeling progressively more anxious and fatigued. Prior to this her current regimen had been stable & helpful, pristiq was recently increased because depression recurred after pts ex-partner
(so significant stressor). Has known partner for 40+ years & he is father of her adult daughter - struggled with EtOH abuse & had cirrhosis of the liver. 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 Describes
tearfulness, isolation, sadness, since he passed - is able to identify that she has not had time to process his illness or due to emotional load of being dry cleaner helper past 1.5 yrs. Sleep has been poor since, both falling and staying asleep.
Past psych: Saw psychiatrist once through [facility]'s network, was told she needs to go to rehab (see below) and did not return as did not agree with this. Medications have been managed by PCP. Prior trial of lexapro in 2006, helped, doesn't know why
was changed.
FH: none significant
SH: Not working currently, has adult daughter and 3 grandchildren (positive relationship with daughter, her and grandkids). Has several stressors that have been ongoing - financial stress, medical issues.
D&A: denies current significant use. When ex-partner was using EtOH daily as means of managing initial grief, however once she realized she was doing this stopped & has not had EtOH in over a month. Denies any prior EtOH or substance use
issues as well.
MDD, recurrent vs grief reaction
OCD + possibly unspecified or generalized anxiety, difficult to differentiate at this time
1. Continue wellbutrin & pristiq - was improving after recent dose increase but then started getting ill and sxs of dehydration likely triggered anxiety sxs, leading to snowballing of anxious distress
2. Trazodone 12.5mg AM/50mg HS + 12.5mg BID PRN anxiety
3. Would benefit from therapy (which she agrees with), suspect that if anxiety decreased will have easier time processing this recent loss
Will follow
[2024-09-03] MEDS: DESYREL 50 MG PO (21:49)
[2024-09-03 23:08] VITALS: BP 109/63
[2024-09-04 07:55] VITALS: BP 168/92
[2024-09-04] MEDS: ADVAIR HFA 115/21 MCG INHALER 2 PUFF INH ×2 (08:13→20:56)
[2024-09-04 08:57] LABS: ALT (SGPT) 21 U/L (0-35); AST (SGOT) 19 U/L (14-36); Albumin 3.7 g/dl (3.5-5.0); Alkaline Phosphatase 80 U/L (38-126); Blood Urea Nitrogen 36 mg/dl (7-17); Calcium 9.1 mg/dl (8.4-10.2); Carbon Dioxide 17 mmol/L (22-30); Chloride 109 mmol/L (98-107); Estimated Creatinine Clearance 40 ml/min; Glucose 112 mg/dl (70-99); Potassium 4.8 mmol/L (3.5-5.1); Sodium 140 mmol/L (135-145); Total Bilirubin 0.2 mg/dl (0.2-1.3); Total Protein 6.2 g/dl (6.3-8.2); eGFR 28.94
[2024-09-04] MEDS: TOPROL XL 25 MG PO (09:11)
[2024-09-04] MEDS: PRISTIQ 200 MG PO (09:11)
[2024-09-04] MEDS: DESYREL 12.5 MG PO (09:11)
[2024-09-04] MEDS: HEPARIN 5000 UNITS SC ×2 (09:12→16:00)
[2024-09-04] MEDS: WELLBUTRIN XL (24 hour extended release) 300 MG PO (09:12)
[2024-09-04] MEDS: PRAVACHOL 40 MG PO (09:12)
[2024-09-04] MEDS: XANAX 0.5 MG PO (09:21)
--- NOTE | 2024-09-04 10:40 | W.PN.GI.CBS2 ---
Today's Communication / Plan
-
-- Continue diet, monitor lower GI output, colonoscopy on Friday versus 10/01 outpatient
- -stool cultures pending
-- po hydration
Assessment / Plan
-
Pt is a 63yo presents with hx asthma, obesity with prior lap band and obesity OP follow with nutritional team (initial loss with lap band now gain with recent Ozempic trial), ? baseline IBS-D, lactose intolerance, HTN, CKD, colon polyps,
anxiety/depression(recently worse), pelvic mass with neg path per patient, thyroid nodules with resection with onset of weakness and diarrhea. change noted after use of semaglutide initially mild with branded dosing then increased with compounded
meds. . She also admits to change in dosing with increase of Desvenlafaxine with increased stress and noted with BHARATH with creat 2.4 on admission up from 1.3 on 08/19 on admission. . She also has some upper abdominal pain around her lap band
site. She will see occasional blood on paper she relate to hemorrhoids. Hx colonoscopy about 10 years ago with polyp and overdue for repeat.
-diarrhea x4 weeks
-possible UTI
-abdominal pain
-acute on chronic CKD on admission
-increased stress anxiety
other med problems:
-obesity
-HTN
-lactose intolerance
-? underlying IBS-D
-hx lap band for wt loss
-colon polyps
-thryoid nodule
-hx benign pelvic mass with resection
-TKR
-hx eric
-fatty liver per imaging
PLAN
# Urgent loose stools -infectious versus medication versus celiac versus microscopic colitis versus worsening bile salt diarrhea
-- She has been off the Ozempic for weeks now
-- Stool studies negative for C. difficile, stool culture and WBCs pending, Giardia cryptosporidium negative
--Renal function much improved after fluids hydration
-- Celiac panel pending
-- Last colonoscopy was over 10 years ago. If the workup is all negative we will eventually need a colonoscopy - patient will need GI 5 6 due to her obesity -
-- On ceftriaxone for E. coli UTI
-- Reviewed CT from 09/03/2024 with oral contrast only because of her renal function we did not do IV contrast. No significant pathology. Hepatomegaly with fatty infiltration, fat-containing ventral hernia measuring 6.7 cm right of the
periumbilical area no evidence of incarceration or strangulation. Prior cholecystectomy
etiology of diarrhea related to medication changes (specifically Ozempic with BHARATH and diarrhea), infectious etiology, microscopic colitis, vs IBS-D with stress vs other
cont to correct BHARATH
OP eval for fatty liver
for psych eval with anxiety
Subjective
Subjective
Date of Service: September 04, 2024
Patient is had 2 small loose stools since yesterday. She feels much better. More hydrated.
Objective
Data Reviewed
Laboratory Data:
Laboratory Results
09/03/24 07:03
09/04/24 07:37
Laboratory Results
Total Bilirubin 0.2 mg/dl (0.2-1.3) 09/04/24 07:37
AST 19 U/L (14-36) 09/04/24 07:37
ALT 21 U/L (0-35) 09/04/24 07:37
Alkaline Phosphatase 80 U/L (38-126) 09/04/24 07:37
Lipase 78 U/L (23-300) 09/02/24 18:05
Vital Signs and I&O:
Vital Signs
Temp Pulse Resp BP Pulse Ox
97.7 F 69 18 168/92 996
09/04/24 07:55 09/04/24 08:19 09/04/24 08:19 09/04/24 07:55 09/04/24 08:19
I&O
09/03/24 09/04/24 09/05/24
06:59 06:59 06:59
Intake Total 1250 / 1250 3480 / 3480
Output Total 250 / 250
Balance 1000 / 1000 3479
Physical Exam
Physical Exam
HEENT: Anicteric
Cardiology: Normal Sinus Rhythm
Pulmonary: Clear
GI: Soft and Tender (Mildly tender in the right upper quadrant and over the hernia)
Neuro: Non Focal
--- NOTE | 2024-09-04 11:03 | W.PN.HOSP.TC ---
Today's Communication/Plan
-
Await stool cultures
Continue antibiotics
Assessment / Plan
Assessment / Plan
Gen-AAOx3, NAD, morbid obesity
HEENT-NC, AT, anicteric, clear oral mm
Neck-supple
CV-reg, no M, +S1/S2
Lungs-clear B/L
Abd-soft, NT, ND
Ext-no edema
Musculoskeletal-no cyanosis, clubbing
Skin-warm and dry, bilateral knee scars
Neuro-grossly non-focal
Psych-calm, cooperative
BHARATH on CKD 3A -BHARATH due to volume depletion from GI losses, diarrhea. Continue IV fluids, monitor labs. Creatinine improving. Low anion gap metabolic acidosis noted.
Subacute diarrhea -4 weeks of loose stools on a daily basis. Worse during the day and after she eats. Less of a problem at nighttime. Diarrhea started after starting compounded semaglutide. Prior to that, was on prescribed standard semaglutide
without significant loose stools. She switched to compounded semaglutide due to cost issues with standard semaglutide.
Last colonoscopy was at least 10 years ago.
Check stool studies, negative so far. GI service following. Differential diagnosis is broad, includes small intestinal bacterial overgrowth versus microscopic colitis versus other etiology. Did have some blood when she wiped but she believes she
also has hemorrhoids. Does have a history of colon polyps.
Potential colonoscopy next week as inpatient.
Possible UTI -she does have symptoms, pyuria noted on urinalysis. Urine culture shows 75,000 CFU's per mL E. coli. Will treat with ceftriaxone x 3 days.
Anxiety disorder/depression -psychiatry consulted, trazodone initiated.
Essential hypertension -stable.
Hyperlipidemia -on pravastatin.
Morbid obesity due to excess calories
Full code
Anticipated Discharge: > 48 hours
Subjective/Interval History
-
Date of Service: September 04, 2024
Patient seen and examined. Feeling better overall. Still with diarrhea.
Objective Data
-
Labs:
Laboratory Results
09/04/24
07:37
Sodium 140
Potassium 4.8
Chloride 109 H
Carbon Dioxide 17 L
BUN 36 H
Creatinine 1.9 H
Glucose 112 H
Calcium 9.1
Total Bilirubin 0.2
AST 19
ALT 21
Alkaline Phosphatase 80
Vital Signs:
Vital Signs
Temp Pulse Resp BP Pulse Ox
97.7 F 69 18 168/92 996
09/04/24 07:55 09/04/24 08:19 09/04/24 08:19 09/04/24 07:55 09/04/24 08:19
I&O
09/03/24 09/04/24 09/05/24
06:59 06:59 06:59
Intake Total 1250 / 1250 3480 / 3480
Output Total 250 / 250
Balance 1000 / 1000 3480 / 3480
Review of Systems
-
History Source: Patient
All other systems: Reviewed and negative
[2024-09-04] MEDS: STERILE WATER FOR INJECTION 10 ML IV (11:26)
[2024-09-04] MEDS: ROCEPHIN 1000 MG IV (11:26)
[2024-09-04 15:22] VITALS: BP 141/91
[2024-09-04 19:00] VITALS: BP 149/82; BP 168/100; BP 171/95; PULSE 78; PULSE 80; PULSE 82
[2024-09-04] MEDS: DESYREL 50 MG PO (22:27)
[2024-09-04 23:06] VITALS: BP 156/98
[2024-09-05] MEDS: HEPARIN SC (01:38)
[2024-09-05 06:34] LABS: ALT (SGPT) 21 U/L (0-35); AST (SGOT) 20 U/L (14-36); Albumin 3.8 g/dl (3.5-5.0); Alkaline Phosphatase 74 U/L (38-126); Blood Urea Nitrogen 33 mg/dl (7-17); Calcium 9.2 mg/dl (8.4-10.2); Carbon Dioxide 17 mmol/L (22-30); Chloride 109 mmol/L (98-107); Estimated Creatinine Clearance 47 ml/min; Glucose 109 mg/dl (70-99); Potassium 4.9 mmol/L (3.5-5.1); Sodium 140 mmol/L (135-145); Total Bilirubin 0.3 mg/dl (0.2-1.3); Total Protein 6.6 g/dl (6.3-8.2); eGFR 35.57
[2024-09-05 07:02] VITALS: BP 137/80
[2024-09-05] MEDS: ADVAIR HFA 115/21 MCG INHALER 2 PUFF INH (08:10)
[2024-09-05] MEDS: HEPARIN 5000 UNITS SC (09:07)
[2024-09-05] MEDS: PRISTIQ 200 MG PO (09:08)
[2024-09-05] MEDS: PRAVACHOL 40 MG PO (09:08)
[2024-09-05] MEDS: WELLBUTRIN XL (24 hour extended release) 300 MG PO (09:08)
[2024-09-05] MEDS: TOPROL XL 25 MG PO (09:08)
[2024-09-05] MEDS: XANAX 0.5 MG PO (10:25)
--- NOTE | 2024-09-05 10:58 | W.PN.HOSP.TC ---
Addendum entered and electronically signed by Caleb Hairston DO 09/05/24 14:27:
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 Scheduled for colonoscopy on October 01. Patient okay with discharge.
Original Note:
Today's Communication/Plan
-
Continue current care
Assessment / Plan
Assessment / Plan
Gen-AAOx3, NAD, morbid obesity
HEENT-NC, AT, anicteric, clear oral mm
Neck-supple
CV-reg, no M, +S1/S2
Lungs-clear B/L
Abd-soft, NT, ND
Ext-no edema
Musculoskeletal-no cyanosis, clubbing
Skin-warm and dry, bilateral knee scars
Neuro-grossly non-focal, mild bilateral intention tremor of hands.
Psych-calm, cooperative
BHARATH on CKD 3A -BHARATH due to volume depletion from GI losses, diarrhea. Continue IV fluids, monitor labs. Creatinine improving. Low anion gap metabolic acidosis noted.
Subacute diarrhea -4 weeks of loose stools on a daily basis. Worse during the day and after she eats. Less of a problem at nighttime. Diarrhea started after starting compounded semaglutide. Prior to that, was on prescribed standard semaglutide
without significant loose stools. She switched to compounded semaglutide due to cost issues with standard semaglutide.
Last colonoscopy was at least 10 years ago.
Check stool studies, negative so far. GI service following. Differential diagnosis is broad, includes small intestinal bacterial overgrowth versus microscopic colitis versus other etiology. Did have some blood when she wiped but she believes she
also has hemorrhoids. Does have a history of colon polyps.
Potential colonoscopy next week as inpatient.
Patient states diarrhea is slowing down.
E. coli UTI -she does have symptoms, pyuria noted on urinalysis. Urine culture shows 75,000 CFU's per mL E. coli. Day 3 of 3 for ceftriaxone. Symptoms improved.
Intention tremor -offered treatment but she declined. Follow-up with PCP. Brother also has a tremor.
Anxiety disorder/depression -psychiatry consulted, trazodone initiated.
Essential hypertension -stable.
Hyperlipidemia -on pravastatin.
Morbid obesity due to excess calories
Full code
Anticipated Discharge: 24 - 48 hours
Subjective/Interval History
-
Date of Service: September 05, 2024
Patient seen and examined. Complaining of tremor.
Objective Data
-
Labs:
Laboratory Results
09/05/24
05:43
Sodium 140
Potassium 4.9
Chloride 109 H
Carbon Dioxide 17 L
BUN 33 H
Creatinine 1.6 H
Glucose 109 H
Calcium 9.2
Total Bilirubin 0.3
AST 20
ALT 21
Alkaline Phosphatase 74
Vital Signs:
Vital Signs
Temp Pulse Resp BP Pulse Ox
97.8 F 74 15 137/80 97
09/05/24 07:02 09/05/24 08:15 09/05/24 08:15 09/05/24 07:02 09/05/24 08:15
I&O
09/04/24 09/05/24 09/06/24
06:59 06:59 06:59
Intake Total 3480 / 3480 4640 / 4640
Output Total 2675 / 2675
Balance 3480 / 3480 1965 / 1965
Review of Systems
-
History Source: Patient
All other systems: Reviewed and negative
[2024-09-05] MEDS: ROCEPHIN 1000 MG IV (11:35)
[2024-09-05] MEDS: STERILE WATER FOR INJECTION 10 ML IV (11:35)
--- NOTE | 2024-09-05 14:26 | W.PN.GI.CBS2 ---
Today's Communication / Plan
-
-- Okay for discharge
-- Do not restart GLP-1
-- Sitting up for outpatient colonoscopy on October 01, my office will call her with directions
Assessment / Plan
-
Pt is a 63yo presents with hx asthma, obesity with prior lap band and obesity OP follow with nutritional team (initial loss with lap band now gain with recent Ozempic trial), ? baseline IBS-D, lactose intolerance, HTN, CKD, colon polyps,
anxiety/depression(recently worse), pelvic mass with neg path per patient, thyroid nodules with resection with onset of weakness and diarrhea. change noted after use of semaglutide initially mild with branded dosing then increased with compounded
meds. . She also admits to change in dosing with increase of Desvenlafaxine with increased stress and noted with BHARATH with creat 2.4 on admission up from 1.3 on 08/19 on admission. . She also has some upper abdominal pain around her lap band
site. She will see occasional blood on paper she relate to hemorrhoids. Hx colonoscopy about 10 years ago with polyp and overdue for repeat.
-diarrhea x4 weeks
-possible UTI
-abdominal pain
-acute on chronic CKD on admission
-increased stress anxiety
other med problems:
-obesity
-HTN
-lactose intolerance
-? underlying IBS-D
-hx lap band for wt loss
-colon polyps
-thryoid nodule
-hx benign pelvic mass with resection
-TKR
-hx eric
-fatty liver per imaging
PLAN
# Urgent loose stools -infectious versus medication versus celiac versus microscopic colitis versus worsening bile salt diarrhea
--09/05/2024. Has not had a bowel movement since yesterday and has no abdominal pain
--Okay for discharge, avoid Ozempic
-- will set her up for an outpatient colonoscopy on 10/01/[address] Rojas in room 5/6 due to her BMI
--My office will call her tomorrow and set up the procedure and give her details
-- She has been off the Ozempic for weeks now
-- Stool studies negative for C. difficile, stool culture and WBCs negative, Giardia cryptosporidium negative
--Renal function much improved after fluids hydration
-- Celiac panel pending
-- Last colonoscopy was over 10 years ago.
--Completed ceftriaxone for E. coli UTI
-- Reviewed CT from 09/03/2024 with oral contrast only because of her renal function we did not do IV contrast. No significant pathology. Hepatomegaly with fatty infiltration, fat-containing ventral hernia measuring 6.7 cm right of the
periumbilical area no evidence of incarceration or strangulation. Prior cholecystectomy
etiology of diarrhea related to medication changes (specifically Ozempic with BHARATH and diarrhea), infectious etiology, microscopic colitis, vs IBS-D with stress vs other
cont to correct BHARATH
OP eval for fatty liver
for psych eval with anxiety
Subjective
Subjective
Date of Service: September 05, 2024
Patient has not had a bowel movement since yesterday morning. She feels good with no more abdominal pain.
Objective
Data Reviewed
Laboratory Data:
Laboratory Results
09/03/24 07:03
09/05/24 05:43
Laboratory Results
Total Bilirubin 0.3 mg/dl (0.2-1.3) 09/05/24 05:43
AST 20 U/L (14-36) 09/05/24 05:43
ALT 21 U/L (0-35) 09/05/24 05:43
Alkaline Phosphatase 74 U/L (38-126) 09/05/24 05:43
Lipase 78 U/L (23-300) 09/02/24 18:05
Vital Signs and I&O:
Vital Signs
Temp Pulse Resp BP Pulse Ox
97.8 F 74 15 137/80 97
09/05/24 07:02 09/05/24 08:15 09/05/24 08:15 09/05/24 07:02 09/05/24 08:15
I&O
09/04/24 09/05/24 09/06/24
06:59 06:59 06:59
Intake Total 3480 / 3480 4640 / 4640
Output Total 2675 / 2675
Balance 3480 / 3480 1964 / 1964
Physical Exam
Physical Exam
HEENT: Anicteric
Pulmonary: Clear
GI: Soft and Non Tender
Neuro: Non Focal
--- NOTE | 2024-09-05 14:34 | W.DS.TRANS ---
DC Summary - General Superintendent
-
Discharge Instructions:
Discharge Diagnosis/Procedures Subacute diarrhea, acute kidney injury, UTI
Diet Low Fat,Other diet
Additional Diets Low lactose
Activity As tolerated
Driving Restrictions As prior to admission
Bathing Restrictions None
Instructions:
Stand-Alone Forms:
Changes to Home Medications: No
Discharge Medications:
DC Medications w/original date entered in Owned it
alprazolam 0.5 mg tablet 0.5 mg PO BIDPRN PRN anxiety 12/25/18
bupropion HCl 300 mg 24 hr tablet, extended release 300 mg PO DAILY 12/25/18
albuterol sulfate 90 mcg/actuation aerosol inhaler 2 puff inhalation R Q4HPRN PRN sob 08/19/24
desvenlafaxine 100 mg tablet,extended release 24 hr 200 mg PO DAILY 08/19/24
fluticasone 250 mcg-salmeterol 50 mcg/dose blistr powdr for inhalation 1 inh inhalation R BID 08/19/24
irbesartan 150 mg tablet 150 mg PO DAILY 08/19/24
metoprolol succinate 25 mg tablet,extended release 24 hr 25 mg PO DAILY 08/19/24
pravastatin 40 mg tablet 40 mg PO DAILY 08/19/24
therapeutic multivitamin 1 tab PO DAILY 08/19/24
cholecalciferol (vitamin D3) 50 mcg (2,000 unit) tablet (Vitamin D3) 100 mcg PO DAILY 09/02/24
trazodone 50 mg tablet 12.5 mg (1/4 x 50 mg) PO BIDPRN PRN anxiety #30 tabs 09/05/24
trazodone 50 mg tablet 50 mg PO HS #30 tabs 09/05/24
Home Medication Changes
Pending Results: No
[2024-09-05 14:48] VITALS: BP 152/98
[2024-09-05] MEDS: PREVNAR 20 0.5 ML IM (15:13)
--- NOTE | 2024-09-05 15:18 | CM ---
Home today no needs.
Plan; Home no needs.
[2024-09-06 07:15] LABS: Endomysial IgA Antibody Titer <1:10 (<1:10)
[2024-09-06 08:53] LABS: IgA 170 mg/dl (70-400)
[2024-09-08 13:03] LABS: tTG IgA Antibody 4.1 EU/ml (0-19); tTG IgG Antibody 5.3 EU/ml (0-19)
== END 2024-09-05 16:25 | disposition home or self-care (01) | DRG 683 ==
LOC: 4 WEST ACU 20:07
PROVIDERS: Nurse Practitioner Adult Health; Physician Assistant; ADMITTING PHYSICIAN Hospitalist; ATTENDING PHYSICIAN Hospitalist; CONSULT PHYSICIAN Internal Medicine; CONSULT PHYSICIAN Psychiatry & Neurology Psychiatry; EMERGENCY PHYSICIAN Student in an Organized Health Care Education/Training Program; FAMILY PHYSICIAN Internal Medicine
PROC: 3E0234Z Introduction of Serum, Toxoid and Vaccine into Muscle, Percutaneous Approach (ICD-10-PCS; 2024-09-05)
DX: N17.9 Acute kidney failure, unspecified (principal); F33.9 Major depressive disorder, recurrent, unspecified; Z68.42 Body mass index [BMI] 45.0-49.9, adult; N39.0 Urinary tract infection, site not specified; I12.9 Hypertensive chronic kidney disease with stage 1 through stage 4 chronic kidney disease, or unspecified chronic kidney disease; N18.31 Chronic kidney disease, stage 3a; F41.9 Anxiety disorder, unspecified; E66.01 Morbid (severe) obesity due to excess calories; J45.909 Unspecified asthma, uncomplicated; Z87.891 Personal history of nicotine dependence; Z85.43 Personal history of malignant neoplasm of ovary; Z96.653 Presence of artificial knee joint, bilateral; Z98.84 Bariatric surgery status; Z90.49 Acquired absence of other specified parts of digestive tract; Z88.2 Allergy status to sulfonamides; Z88.1 Allergy status to other antibiotic agents; Z79.899 Other long term (current) drug therapy; E73.9 Lactose intolerance, unspecified; F42.9 Obsessive-compulsive disorder, unspecified; E86.0 Dehydration; B96.20 Unspecified Escherichia coli [E. coli] as the cause of diseases classified elsewhere; G25.2 Other specified forms of tremor; K76.0 Fatty (change of) liver, not elsewhere classified; E78.00 Pure hypercholesterolemia, unspecified; K46.9 Unspecified abdominal hernia without obstruction or gangrene; R16.0 Hepatomegaly, not elsewhere classified; K52.839 Microscopic colitis, unspecified; K63.5 Polyp of colon; Z90.710 Acquired absence of both cervix and uterus; Z23 Encounter for immunization
CPT/HCPCS: 74176; 80048; 80053; 81003; 81015; 82784; 83516; 83690; 84443; 85025; 85027; 86231; 87045; 87046; 87077; 87086; 87186; 87324; 87328; 87329; 87427; 87449; 89055; 90677; 94640; 99285; G0009

== ENCOUNTER 2024-10-01 07:02 | Day surgery (SDC) | payer OTHER, SELFPAY ==
[2024-10-01 11:40] VITALS: BMI 49.4
[2024-10-01 11:45] VITALS: BP 111/83
[2024-10-01 12:02] VITALS: BMI 49.4
[2024-10-01 12:55] VITALS: BP 138/77
[2024-10-01 13:00] VITALS: BP 129/105
[2024-10-01 13:15] VITALS: BP 135/75
== END 2024-10-01 13:39 | disposition home or self-care (01) ==
LOC: GI 07:02
PROVIDERS: ATTENDING PHYSICIAN Internal Medicine Gastroenterology
DX: R19.4 Change in bowel habit (principal); D12.8 Benign neoplasm of rectum; K64.8 Other hemorrhoids; K57.30 Diverticulosis of large intestine without perforation or abscess without bleeding
CPT/HCPCS: 45385; 45380; 88305

== ENCOUNTER → 2025-03-29 07:05 | Outpatient (REF) | payer OTHER, SELFPAY | LOC: RAD 07:05 | PROVIDERS: ATTENDING PHYSICIAN Internal Medicine; REFERRING PHYSICIAN Internal Medicine Endocrinology, Diabetes & Metabolism | DX: E04.2 Nontoxic multinodular goiter (principal) | CPT/HCPCS: 76536 ==

== ENCOUNTER → 2025-04-04 14:34 | Outpatient (REF) | payer OTHER, SELFPAY ==
[2025-04-04 16:11] LABS: ALT (SGPT) 28 U/L (0-35); AST (SGOT) 26 U/L (14-36); Albumin 4.4 g/dl (3.5-5.0); Alkaline Phosphatase 83 U/L (38-126); Blood Urea Nitrogen 24 mg/dl (7-17); Calcium 9.7 mg/dl (8.4-10.2); Carbon Dioxide 27 mmol/L (22-30); Chloride 107 mmol/L (98-107); Glucose 99 mg/dl (70-99); Potassium 5.6 mmol/L (3.5-5.1); Sodium 140 mmol/L (135-145); Total Bilirubin 0.6 mg/dl (0.2-1.3); eGFR 49.92
== END ==
LOC: REG 14:34
PROVIDERS: ATTENDING PHYSICIAN Internal Medicine Endocrinology, Diabetes & Metabolism; FAMILY PHYSICIAN Internal Medicine
DX: E04.2 Nontoxic multinodular goiter (principal); I10 Essential (primary) hypertension
CPT/HCPCS: 36415; 80053; 83835